=== PATIENT | female | born 1975 | race Caucasian/White ===

== ENCOUNTER 2018-01-18 16:04 | Emergency (ER) | payer BC, OTHER ==
[~2018-01-18] VITALS: Ht 160 cm; Wt 56.7 kg
[~2018-01-18 16:04] MED LIST: ADDERALL 30 MG30 MG; ADIPEX-P37.5 M1 PO; ALLERGY INJECTIONS; AZITHROMYCIN 2250 MG PO; FLEXERIL PO; HYDROCODON-ACE1 EAC7 PO; MEDROLDOSEPACK PO; NORCO 5-325 TA1 EAC1 PO; PENICILLIN VK500 MG PO; PHENERGAN-CODE120 ML PO; VICODIN 5-5001 EACH PO; ZYRTEC10 M2 PO
[2018-01-18 16:16] VITALS: BP 113/80
[2018-01-18] MEDS ORDERED: CLEOCIN HCL300 MG PO (16:21)
[2018-01-18] MEDS ORDERED: NORCO 5-325 TA1 EAC1 PO (16:21)
== END 2018-01-18 16:27 | disposition home or self-care (01) ==
LOC: M.ERS 16:04
DX: K04.7 Periapical abscess without sinus (principal); H92.09 Otalgia, unspecified ear; Z90.710 Acquired absence of both cervix and uterus

== ENCOUNTER 2018-01-22 20:06 | Emergency (ER) | payer BC, OTHER ==
[~2018-01-22] VITALS: Ht 160 cm; Wt 56.8 kg
[~2018-01-22 20:06] MED LIST changes: +CLEOCIN HCL300 MG PO
[2018-01-22 20:09] VITALS: BP 146/98
[2018-01-22] MEDS ORDERED: PERCOCET 5-3251 EACH PO (20:20)
== END 2018-01-22 20:31 | disposition home or self-care (01) ==
LOC: M.ERS 20:06
DX: K08.89 Other specified disorders of teeth and supporting structures (principal); Z90.710 Acquired absence of both cervix and uterus

== ENCOUNTER → 2018-04-14 | Outpatient (CLI) | payer BC, OTHER ==
[~2018-04-14] MED LIST changes: +PERCOCET 5-3251 EACH PO
== END ==
LOC: M.ULTRA 04-09 14:56 → M.RAD 07:10 → M.ULTRA 07:30
DX: Z12.31 Encounter for screening mammogram for malignant neoplasm of breast (principal); R10.9 Unspecified abdominal pain; K59.00 Constipation, unspecified; R19.7 Diarrhea, unspecified